=== PATIENT | female | born 1945 | race Caucasian/White ===

== ENCOUNTER 2019-08-31 06:06 | Day surgery (SDC) | payer MEDICARE, OTHER ==
[~2019-08-31] VITALS: Ht 170.2 cm; Wt 75.9 kg
[~2019-08-31 06:06] MED LIST: ASPIRIN 81M81 MG/TA2 PO; CELEXA 20MG20 MG/TAB PO; DOXYCYCLINE 10100 MG PO; FOSAMAX 70MG TA70 MG PO; LIPITOR 40MG TA40 MG PO; NORCO 325 MG-51 TAB PO; NORVASC 5MG5 MG/TAB PO; PEPCID 20MG TAB20 MG PO; PRILOSEC 20MG20 MG PO; PRINIVIL20 MG PO; TOPROL XL 25MG25 MG PO; TOPROL XL 50MG50 MG PO; VITAMIN D1000 IU PO
[2019-08-31] MEDS ORDERED: CELEXA10 MG PO (06:37)
[2019-08-31] MEDS ORDERED: PEPCID AC 10MG10 MG PO (06:38)
[2019-08-31 06:40] VITALS: BP 152/89; PULSE 74; TEMP 97.9
[2019-08-31] MEDS ORDERED: NORVASC 5MG5 MG/TAB PO (06:40)
[2019-08-31 08:00] VITALS: BP 116/54; PULSE 68; TEMP 98.5
--- NOTE | 2019-08-31 08:00 | NUR ---
TO BAY 2 PER CART FROM ENDOSCOPY. ALERT ORIENTED X3, TALKING TO STAFF AND COUSIN. AMBULATED TO RECLINER WITH ASSIST AND TOLERATED WELL. RECEIVED COFFEE/CREAM & SUGAR.
[2019-08-31 08:15] VITALS: BP 120/65; PULSE 68
--- NOTE | 2019-08-31 08:15 | NUR ---
DRINKING COFFEE AND TALKING WITH COUSIN. DENIES PAIN OR DISCOMFORT AT THIS TIME.
--- NOTE | 2019-08-31 08:30 | NUR ---
DR WEEKS TO TALK WITH PATIENT AND HER COUSIN.
--- NOTE | 2019-08-31 08:45 | NUR ---
RECEVIED DISCHARGE INSTRUCTIONS AND VERBALIZED UNDERSTANDING DISCONTINUED IV AND INT- CATHETER INTACT AMBULATED TO BATHROOM
--- NOTE | 2019-08-31 08:55 | NUR ---
PATIENT GETTING DRESSED
--- NOTE | 2019-08-31 09:00 | NUR ---
DISCHARGED PER WC BY NURSING STAFF TO PRIVATE CAR IN CARE OF HEATHER JASS.
== END 2019-08-31 09:00 | disposition home or self-care (01) ==
LOC: SDCO 06:06
DX: K55.9 Vascular disorder of intestine, unspecified (principal); K52.9 Noninfective gastroenteritis and colitis, unspecified; K64.1 Second degree hemorrhoids; Z79.899 Other long term (current) drug therapy; Z79.82 Long term (current) use of aspirin; I25.10 Atherosclerotic heart disease of native coronary artery without angina pectoris; I10 Essential (primary) hypertension; Z87.891 Personal history of nicotine dependence; G47.33 Obstructive sleep apnea (adult) (pediatric); K21.9 Gastro-esophageal reflux disease without esophagitis; Z86.010 Personal history of colon polyps; E78.00 Pure hypercholesterolemia, unspecified; Z80.0 Family history of malignant neoplasm of digestive organs; G89.29 Other chronic pain
CPT/HCPCS: J2704; J7030

== ENCOUNTER 2020-08-25 22:45 | Emergency (ER) | payer MEDICARE, OTHER, MEDICAID ==
[~2020-08-25] VITALS: Ht 170.2 cm; Wt 77.3 kg
[~2020-08-25 22:45] MED LIST changes: +CELEXA10 MG PO; +PEPCID AC 10MG10 MG PO
[2020-08-25 23:20] LABS: BASO % 0.3 % (0.0-2.0); GRAN # 5.8 (1.4-6.5); GRAN % 79.8 % (42.2-75.2); HEMATOCRIT 40.2 % (37.0-47.0); HEMOGLOBIN 13.3 g/dl (12.5-16.0); LYMPH # 1.3 (1.2-3.4); LYMPH % 17.8 % (20.0-51.0); MEAN CELL VOLUME 96 fl (80.0-100.0); MEAN CORPUSCULAR HEMOGLOBIN 32 pg (27.0-31.0); MEAN CORPUSCULAR HGB CONC 33 g/dl (33.0-37.0); MEAN PLATELET VOLUME 9.6 fl (7.4-10.4); MONO # 0.1 (0.1-0.6); MONO % 1.7 % (1.7-9.3); PLATELET COUNT 317 K/mm3 (130-400); RED BLOOD COUNT 4.19 M/mm3 (4.10-5.30); REDCELL DISTRIBUTION WIDTH-CV 13.6 % (11.5-14.5)
[2020-08-25 23:26] LABS: ALKALINE PHOSPHATASE 136 U/L (50-136); ANION GAP 16 mmol/L (7-16); AST,SGOT 42 U/L (15-37); BILIRUBIN,TOTAL 0.7 mg/dL (0.0-1.0); BLOOD UREA NITROGEN 19 mg/dL (7-17); CALCIUM 10.2 mg/dL (8.4-10.2); CARBON DIOXIDE 18 mmol/L (22-30); CHLORIDE 107 mmol/L (98-107); CREATININE, serum 0.95 (0.52-1.25); GLUCOSE 248 mg/dL (74-106); SODIUM 142 mmol/L (137-145); TOTAL PROTEIN 8.5 gm/dL (6.4-8.2)
[2020-08-25 23:31] LABS: ALANINE AMINOTRANSFERASE 29 U/L (4-34)
[2020-08-25 23:37] LABS: TROPONIN-I < 0.012 ng/mL (0.000-0.035)
[2020-08-25 23:38] LABS: INR 1.1 (0.8-3.0); PROTHROMBIN TIME 12.4 SECONDS (9.7-12.8)
[2020-08-25 23:41] LABS: PARTIAL THROMBOPLASTIN TIME 28.5 SECONDS (26.0-37.0)
[2020-08-26 01:39] VITALS: BP 122/64; PULSE 94
== END 2020-08-26 01:47 | disposition short-term general hospital (02) ==
LOC: COL.ER 22:45
PROVIDERS: Emergency Medicine
DX: I20.0 Unstable angina (principal); I10 Essential (primary) hypertension; E78.5 Hyperlipidemia, unspecified; M81.0 Age-related osteoporosis without current pathological fracture; Z87.891 Personal history of nicotine dependence; Z86.79 Personal history of other diseases of the circulatory system; Z79.82 Long term (current) use of aspirin
CPT/HCPCS: J1644; J2270; J7030; Q9967